=== PATIENT | female | born 1950 | race African-American/Black ===

== ENCOUNTER 2019-07-12 10:01 | Emergency (ER) | payer MEDICAID, MEDICARE ==
[~2019-07-12] VITALS: Ht 157.5 cm; Wt 86.0 kg
[~2019-07-12 10:01] MED LIST: CARI250T; CLON0.1T; DIAZ10TA PO; HYDR-3513 PO; NIFE10CA; OXYC-100; OXYC-100 PO
[2019-07-12] MEDS ORDERED: FENTANYL CITRATE/PF 50MCG/ML 2ML VIAL IV ONE (11:00)
[2019-07-12] MEDS ORDERED: ONDANSETRON HCL 4MG/2ML INJ IV ONE (11:00)
[2019-07-12 13:15] VITALS: BP 148/77
== END 2019-07-12 13:57 | disposition home or self-care (01) ==
LOC: ER 10:47
DX: M16.11 Unilateral primary osteoarthritis, right hip (principal); G89.29 Other chronic pain; J44.9 Chronic obstructive pulmonary disease, unspecified; I10 Essential (primary) hypertension; Z90.710 Acquired absence of both cervix and uterus; Z90.49 Acquired absence of other specified parts of digestive tract; Z79.899 Other long term (current) drug therapy; Z88.0 Allergy status to penicillin; Z88.2 Allergy status to sulfonamides; Z88.5 Allergy status to narcotic agent
CPT/HCPCS: 96374; 96375; 99283; J2405; J3010